=== PATIENT | female | born 1980 | race American Indian/Alaskan Native ===

== ENCOUNTER 2019-01-06 17:35 | Emergency (ER) | payer MEDICAID ==
--- NOTE | 2019-01-06 18:35 | XRay Report ---
CHEST 1 VIEW INDICATION: Chest Pain. COMPARISON: None FINDINGS: SUPPORT DEVICES: None. HEART / MEDIASTINUM: No significant abnormality. LUNGS / PLEURA: No significant pulmonary or pleural abnormality. No pneumothorax. ADDITIONAL FINDINGS: IMPRESSION: 1. No acute findings. Signer Name: Corby Price MD Signed: 01/06/2019 6:31 PM Workstation Name: [id number]
--- NOTE | 2019-01-06 19:00 | Emergency Department Report ---
ED Chest Pain HPI - General Chief Complaint: Chest Pain Stated Complaint: CHEST PAIN/FEET SWELLING/PAIN Time Seen by Provider: 01/06/19 18:30 Source: patient Mode of arrival: Ambulatory Limitations: No Limitations - History of Present Illness Initial Comments: Ms. Jimenez is a 38-year-old -[place] female who denies medical historty, has history of obesity. Patient presents today for chest pain ,cough left arm numbness intermittently , with occassional sob 3 weeks with associated bilateral lower extremity swelling. Pain described as 4/10 left substernal , pain is exacerbated by cough, and movement. pain is relieved by nothing tried. pt denies fever, or chills. There is no n/v, no diaphoresis. no PND MD Complaint: chest pain Onset/Timin -: week(s) Onset: during rest, during exertion Pain Location: substernal, left chest Pain Radiation: LUE Severity: moderate Severity scale (0 -10): 6 Quality: sharp Consistency: intermittent Improves With: nothing Worsens With: exertion, inspiration, palpation, movement re: dyspnea. denies: nausea, vomting, diaphoresis, sense of impending doom Other Symptoms: cough, leg swelling. denies: fever, syncope, rash, acid taste in mouth, palpitations, burping Treatments Prior to Arrival: none Aspirin use within the Past 7 Days: (0) No - Related Data On Oral Contraceptives: No Previous Rx's Medication Instructions Recorded Last Taken Type Chlorpheniramine/Dextromethorp 1 each PO Q8H PRN #30 tablet 01/06/19 Unknown Rx [Coricidin Hbp Cough-Cold Tab] Ibuprofen [Motrin 800 MG tab] 800 mg PO Q8HR PRN #30 tablet 01/06/19 Unknown Rx hydroCHLOROthiazide [HCTZ] 25 mg PO QDAY #30 tablet 01/06/19 Unknown Rx Allergies Allergy/AdvReac Type Severity Reaction Status Date / Time No Known Allergies Allergy Unverified 01/06/19 17:35 Heart Score - HEART Score History: Slightly suspicious EKG: Normal Age: < 45 Risk factors: No known risk factors Troponin: < normal limit HEART Score: 0 ED Review of Systems ROS: Stated complaint: CHEST PAIN/FEET SWELLING/PAIN Other details as noted in HPI Constitutional: denies: chills, fever Eyes: denies: eye pain, eye discharge, vision change ENT: congestion. denies: ear pain, throat pain Respiratory: cough, shortness of breath. denies: wheezing Cardiovascular: chest pain, edema. denies: palpitations, orthopnea, paroxysmal nocturnal dyspnea Endocrine: no symptoms reported Gastrointestinal: denies: abdominal pain, nausea, vomiting, diarrhea Genitourinary: denies: urgency, dysuria, discharge Musculoskeletal: denies: back pain Skin: as per HPI Neurological: paresthesias (left arm ). denies: headache, weakness, numbness, confusion, vertigo Psychiatric: denies: anxiety, depression Hematological/Lymphatic: denies: easy bleeding, easy bruising ED Past Medical Hx - Past Medical History Previous Medical History?: No - Surgical History Past Surgical History?: Yes Additional Surgical History: x 4 - Social History Smoking Status: Never Smoker - Medications Home Medications: Home Medications Medication Instructions Recorded Confirmed Last Taken Type Chlorpheniramine/Dextromethorp 1 each PO Q8H PRN #30 tablet 01/06/19 Unknown Rx [Coricidin Hbp Cough-Cold Tab] Ibuprofen [Motrin 800 MG tab] 800 mg PO Q8HR PRN #30 tablet 01/06/19 Unknown Rx hydroCHLOROthiazide [HCTZ] 25 mg PO QDAY #30 tablet 01/06/19 Unknown Rx ED Physical Exam - General Limitations: No Limitations General appearance: alert, in no apparent distress - Head Head exam: Present: atraumatic, normocephalic - Eye Eye exam: Present: PERRL, EOMI Pupils: Present: normal accommodation - ENT ENT exam: Present: normal orophraynx, mucous membranes moist - Neck Neck exam: Present: normal inspection, full ROM. Absent: tenderness, meningismus, lymphadenopathy, thyromegaly - Expanded Neck Exam Expanded Neck exam: Absent: thyroid mass, carotid bruit - Respiratory Respiratory exam: Present: normal lung sounds bilaterally, chest wall tenderness (left lateral ). Absent: respiratory distress, wheezes, rales, rhonchi, stridor - Cardiovascular Cardiovascular Exam: Present: regular rate, normal rhythm, normal heart sounds. Absent: systolic murmur, diastolic murmur, rubs, gallop - GI/Abdominal GI/Abdominal exam: Present: soft, normal bowel sounds. Absent: distended, tenderness, bruit, hernia - Rectal Rectal exam: Present: deferred - Extremities Exam Extremities exam: Present: normal inspection, full ROM, normal capillary refill, pedal edema (swelling nonpitting). Absent: tenderness, calf tenderness (neg homans sign, no pain with dorsoflexion) - Back Exam Back exam: Present: normal inspection, full ROM. Absent: tenderness, CVA tenderness (R), CVA tenderness (L) - Neurological Exam Neurological exam: Present: alert, oriented X3, CN II-XII intact, normal gait - Psychiatric Psychiatric exam: Present: normal affect, normal mood - Skin Skin exam: Present: warm, dry, intact, normal color. Absent: rash ED Course Vital Signs 01/06/19 01/06/19 01/06/19 17:48 18:37 18:42 Temperature 98.6 F Pulse Rate 78 79 Respiratory 20 12 20 Rate Blood Pressure 179/91 Blood Pressure [Left] O2 Sat by Pulse 99 100 99 Oximetry 01/06/19 01/06/19 01/06/19 18:45 19:00 19:15 Temperature 98.4 F Pulse Rate 73 72 75 Respiratory 18 14 19 Rate Blood Pressure 145/87 Blood Pressure 160/98 [Left] O2 Sat by Pulse 100 100 Oximetry 01/06/19 01/06/19 01/06/19 20:00 20:30 21:00 Temperature Pulse Rate 81 71 72 Respiratory 15 15 15 Rate Blood Pressure 142/93 151/85 151/85 Blood Pressure [Left] O2 Sat by Pulse 99 100 Oximetry AVILA score - Avila Score Age > 65: (0) No Aspirin use within the Past 7 Days: (0) No 3 or more CAD Risk Factors: (0) No 2 or more Angina events in past 24 hrs: (0) No Known CAD with more than 50% Stenosis: (0) No Elevated Cardiac Markers: (0) No ST Deviation Greater than 0.5mm: (0) No AVILA Score: 0 ED Medical Decision Making - Lab Data Result diagrams: 01/06/19 18:22 01/06/19 18:22 - EKG Data EKG shows normal: sinus rhythm, axis, QRS complexes, ST-T waves Rate: normal - EKG Data Interpretation: normal EKG (ekg interp by ed attending NSR DE intervial:.[id number], no ST Elevated NM, ) - Radiology Data Radiology results: report reviewed, image reviewed Normal CXR, no fracture no infiltrates, no abnormality - Medical Decision Making heart score is : 0, AVILA score: 0, trop: , 0.01 x 2, cxr : normal , pain is resolved, Dx:chest wall pain , URI pt will follow up with pcp in 2-3 days , return to ed if symptoms worsen. bp improved, will refill hctz, ibuprofen prn pain , pt will use otc: flonase, loratadine for uri symptoms advised not to take otc cold medicines x for coricidin products for patients with htn. Critical care attestation.: If time is entered above; I have spent that time in minutes in the direct care of this critically ill patient, excluding procedure time. ED Disposition Clinical Impression: Chest wall pain, Bilateral lower extremity edema URI (upper respiratory infection) Qualifiers: URI type: unspecified viral URI Qualified Code(s): J06.9 - Acute upper respiratory infection, unspecified Disposition: TO HOME OR SELFCARE Is pt being admited?: No Does the pt Need Aspirin: No Condition: Stable Instructions: Chest Pain (ED), Upper Respiratory Infection (ED), Hypertension (ED), Leg Edema (ED) Prescriptions: Chlorpheniramine/Dextromethorp [Coricidin Hbp Cough-Cold Tab] 1 each PO Q8H PRN #30 tablet PRN Reason: Cough hydroCHLOROthiazide [HCTZ] 25 mg PO QDAY #30 tablet Ibuprofen [Motrin 800 MG tab] 800 mg PO Q8HR PRN #30 tablet PRN Reason: pain Referrals: JAYANT SALDANA MD [Staff Physician] - 3-5 Days Forms: Work/School Release Form(ED) Time of Disposition: 22:58
[2019-01-06 19:02] LABS: BUN/Creatinine Ratio 19; Blood Urea Nitrogen 13 mg/dL (7-17); Calcium 8.7 mg/dL (8.4-10.2); Hemolysis Index 28
[2019-01-06 19:14] LABS: Basophils % (Auto) 0.7 % (0.0-1.8); Eosinophils % (Auto) 0.9 % (0.0-4.3); Hematocrit 38.7 % (30.3-42.9); Hemoglobin 12.9 gm/dl (10.1-14.3); Lymphocytes # (Auto) 1.4 K/mm3 (1.2-5.4); Lymphocytes % (Auto) 27.8 % (13.4-35.0); Mean Corpuscular HGB Conc 33 % (30-34); Mean Corpuscular Volume 89 fl (79-97); Monocytes # (Auto) 0.6 K/mm3 (0.0-0.8); Monocytes % (Auto) 12.8 % (0.0-7.3); Platelet Count 190 K/mm3 (140-440); Red Blood Count 4.35 M/mm3 (3.65-5.03); Red Cell Distribution Width 15.8 % (13.2-15.2)
[2019-01-06] MEDS ORDERED: NORCO 5/325 PO ONE (20:02)
[2019-01-06] MEDS ORDERED: HCTZ PO ONE (20:03)
[2019-01-06 23:52] VITALS: BP 149/87
== END 2019-01-06 23:20 | disposition home or self-care (01) ==
LOC: ED 17:35
DX: J06.9 Acute upper respiratory infection, unspecified (principal); R60.0 Localized edema; R07.2 Precordial pain; E66.9 Obesity, unspecified; Z68.44 Body mass index [BMI] 60.0-69.9, adult; Z79.899 Other long term (current) drug therapy
CPT/HCPCS: 36415; 71045; 80048; 83880; 84484; 85025; 93005; 93010; 99284